=== PATIENT | male | born 2000 | race Caucasian/White ===

== ENCOUNTER 2025-01-14 20:21 | Emergency (ER) | payer BC, SELFPAY ==
[2025-01-14 20:51] VITALS: BP 133/82
[2025-01-14 21:33] LABS: COVID-19 Antigen Negative (Negative)
--- NOTE | 2025-01-14 22:05 | ED.GENMED ---
History of Present Illness
General
Chief Complaint: Cold/Flu/URI Symptoms
Source: patient and family
Exam Limitations: none
Time Seen by Provider: 01/14/25 22:03
Nursing documentation reviewed up to this point in time: agreed with
History of Present Illness
History of Present Illness:
Pleasant 24-year-old male presents to the emergency department with 24 hours of nausea, vomiting, diarrhea, epigastric pain and migraine headache. He states he has been having bodyaches. He does suffer from migraines and states that he has a
moderate migraine at this point. He does report that it has improved since getting here. Denies current fever or chills. He states he does have some shortness of breath.
Vital signs are stable. Patient not hypoxic
Nursing note reviewed. I agree with nursing documentation up to this point in time.
Home Meds and allergies reviewed.
NUMBER AND COMPLEXITY OF PROBLEMS ADDRESSED AT THE ENCOUNTER
� Chronic conditions affecting care:
� Acute Exacerbation and/or Progression of Chronic Illness:
� Differential Diagnosis includes:
AMOUNT AND/OR COMPLEXITY OF DATA TO BE REVIEWED AND ANALYZED
I performed an independent evaluation of the following and my interpretation is:
EKG: EKG from today shows normal sinus rhythm rate of 73 with normal intervals, normal axis. No evidence of acute ischemia present. Incomplete right bundle branch block present. No old EKG available for comparison.
Pulse Ox: Not Hypoxic
Senior Controls Technician: Sinus Rhythm
CT:
X-rays:
Ultrasound:
Laboratory Studies:
Other:
Review of other/old records: Labs from 2007 reviewed
Clinical information was obtained by an independent historian:
Prescriptions/Medications Considered but not given:
Further testing considered but not performed:
RISK OF COMPLICATIONS AND/OR MORBIDITY OR MORTALITY OF PATIENT MANAGEMENT
Social determinants of health affecting care: Good Social Support
Discussion with other providers:
Escalation of care including admission/observation vs risk of discharge considered: After being observed in the emergency department, patient is
CRITICAL CARE NOTE:
Total Time (exclusive of procedures):
Update:
Review of Systems
Review of Systems
Allergies reviewed?: Yes
All Other Systems: ROS reviewed and negative except as documented in HPI and ROS
Constitutional: Reports fatigue and sleep disturbance
ABD/GI: Reports nausea and vomiting
Neurological: Reports headache
Psychiatric: Reports anxiety
Phy Exam
General Physical Exam
General Presentation: well appearing and no apparent distress
General Skin: warm and dry
General Habitus: normal
General Mental: alert
General Hydration: appears well hydrated
ENT Exam
ENT Exam: EOMI, pharynx normal, neck supple and normocephalic
Eye Exam
Eye Exam: PERRL, cornea clear and conjunctiva normal
Cardiovascular Exam
Cardiovascular Exam: regular rate/rhythm, no edema and normal peripheral pulses
Systolic Murmur: 1/6
Pulmonary Exam
Pulmonary Exam: lungs clear, no respiratory distress, no rales, no crackles, no rhonchi, no stridor, no wheezing and no cough
Gastrointestinal Exam
Gastrointestinal Exam: normal bowel sounds, non tender, soft, no organomegaly, no pulsatile mass and non distended
Neurological Exam
Neurological Exam: alert, oriented x3, no motor deficits and speech normal
Musculoskeletal Exam
Musculoskeletal Exam: full ROM and no edema
Skin Exam
Skin Exam: normal color, warm/dry, no rash and no petechia
Psychiatric Exam
Psychiatric Exam: normal mood/affect
Course
Orders/Labs/Results
Orders:
Orders
01/14/25 20:57
EKG [Electrocardiogram (*1)] Urgent
Reason for Study: Shortness of Breath
EKG- Treatment ONCE
01/14/25 21:06
COVID-19 Antigen Urgent
Source: Nasal Swab
Influenza A+B Rapid Molecular Urgent
BLAS Source: Nasal Swab
Specimen Description:
01/14/25 22:16
0.9% Sodium Chloride 1000 ml [Nss] 1,000 ml IV BOLUS
Ondansetron Injectable [Zofran] 4 mg IV NOW STA
01/14/25 22:18
Urinalysis Reflex To Culture Urgent
Date Specimen was Collected: 01/15/25
Time Specimen was Collected: 00:16
01/14/25 22:22
CR Chest - 2 Views Urgent
Comment:
Reason For Exam: dyspnea
01/14/25 22:25
Complete Blood Count/With Diff Urgent
Comprehensive Metabolic Panel Urgent
Lipase Urgent
PTT Urgent
Prothrombin Time Urgent
Troponin I Urgent
01/14/25 23:34
Ketorolac [Toradol] 15 mg IV NOW STA
Abnormal Lab Results
01/14/25
22:25
MCV 79.8 L fL
(80.0-94.0)
MPV 11.4 H fL
(7.4-10.4)
Absolute Neuts (auto) 7.5 H 10^3/uL
(1.4-6.5)
Glucose 110 H mg/dl
(70-99)
01/14/25 22:25
01/14/25 22:25
Vital Signs
Initial and Last Documented VS:
Initial Vital Signs
Temp Pulse Resp BP Pulse Ox
98.3 F 81 18 133/82 99
01/14/25 20:51 01/14/25 20:51 01/14/25 20:51 01/14/25 20:51 01/14/25 20:51
Last Documented Vital Signs
Temp Pulse Resp BP Pulse Ox
98.3 F 81 18 133/82 99
01/14/25 20:51 01/14/25 20:51 01/14/25 20:51 01/14/25 20:51 01/14/25 21:27
*Radiology
Radiology exam reviewed: radiology read reviewed
*Pulse Oximetry
Patient hypoxic: no
*Critical Care Note
Total Time (30-74mins, 75-104mins- exclusive of procedures): Not Applicable
Update Note
Update Note:
Headache mostly resolved prior to Toradol administration. We gave Toradol and now he has 0 out of 10 headache pain. We did discuss lumbar puncture for this being one of his more severe migraines. At this point he refused. He states he feels
great. Has still not been able to urinate. He will get some more fluids in anticipation of a urine collection.
ED Attending Note
-
Portions of this chart may have been created with voice recognition software.� Occasional wrong word or��sound alike� substitutions may have occurred due to the inherent limitations of voice recognition software.
Discharge Plan
Departure
Patient Disposition: Home (Routine Discharge)
Date of Disposition: 01/15/25
Time of Disposition: 00:34
Patient with high blood pressure during this ER visit?: Yes
Condition: Good
Discharge Problem:
Acute dehydration, URI (upper respiratory infection), Migraine
Instructions: Viral Syndrome (DC), Dehydration in adults - ED discharge instructions, BLOOD PRESSURE
Referrals:
Dane Whitehead, [Family Provider] -
Activity Restrictions/Additional Instructions:
It was a pleasure meeting you and taking part in your care. We hope for your continued healing and wellness.
Please read discharge instructions in their entirety. However, they are for general education and may not describe your exact diagnosis at discharge. Information on your ER visit and medical conditions were discussed with you along with appropriate
follow up information...
If indicated, please take your medications as instructed and indicated on discharge paperwork.
Please schedule a follow up appointment as directed. Call to schedule an appointment
Please return to the emergency department with ANY change in, persisting, or worsening of symptoms. If any of your symptoms do not improve, or persist, or become more severe within 6-12 hours, please return to the emergency department for further
care.
Please return to the emergency department if you develop a headache, neck pain/stiffness, fever greater than 100.4F, chest pain, shortness of breath, persistent nausea, vomiting, slurred speech, difficulty walking, numbness/tingling, weakness, signs
of infection or any other symptoms that are worrisome to you.
If you have any questions or concerns please do not hesitate to call the Hospital at or E-mail me directly at [email or web address]
Interventions
Interventions:
*Risk Screen - Suicide Last Done: 01/14/25 20:51
*General Assessment Last Done: 01/14/25 20:51
*Neglect/Abuse Screening Last Done: 01/14/25 20:51
*ED COVID-19 Vaccine History Last Done: 01/14/25 20:56
ED- Pulmonary Assessment Last Done: 01/14/25 21:27
Discharge Date and Time
Print Language: [place]
[2025-01-14 22:41] LABS: % Basophils 0.2 % (0-2); % Eosinophils 0.1 % (0-6); % Immature Granulocytes 0.3 % (0-0.5); % Lymphocytes 20.8 % (20.5-51.1); % Monocytes 5.7 % (1.7-9.3); % Neutrophils 72.9 % (42.2-75.2); Absolute Lymphocytes 2.1 10^3/uL (1.2-3.4); Absolute Monocytes 0.6 10^3/uL (0.1-0.6); Absolute Neutrophils 7.5 10^3/uL (1.4-6.5); Hematocrit 41.2 % (39.0-52.0); Mean Corp Hgb Conc. 36.4 g/dL (33.0-37.0); Mean Corpuscular Hgb 29.1 pg (27.0-31.0); Mean Corpuscular Volume 79.8 fL (80.0-94.0); Mean Platelet Volume 11.4 fL (7.4-10.4); Nucleated Red Blood Cells % 0 % (-); Platelet Count 202 10^3/uL (130-400); Red Blood Cell Count 5.16 10^6/uL (4.70-6.10); White Blood Cell Count 10.3 10^3/uL (4.8-10.8)
[2025-01-14] MEDS: NSS 1000 IV (22:45)
[2025-01-14 22:51] LABS: APTT 28.2 Sec (23.4-35.0); INR 1.08; PT 14.3 Sec (11.4-14.6)
[2025-01-14 22:53] LABS: ALT (SGPT) 27 U/L (0-50); AST (SGOT) 27 U/L (17-59); Albumin 4.8 g/dl (3.5-5.0); Alkaline Phosphatase 78 U/L (38-126); Blood Urea Nitrogen 9 mg/dl (9-20); Calcium 10.2 mg/dl (8.4-10.2); Carbon Dioxide 25 mmol/L (22-30); Chloride 106 mmol/L (98-107); Glucose 110 mg/dl (70-99); Lipase 100 U/L (23-300); Potassium 4.1 mmol/L (3.5-5.1); Sodium 139 mmol/L (135-145); Total Bilirubin 0.8 mg/dl (0.2-1.3); Total Protein 7.9 g/dl (6.3-8.2); eGFR > 60.00
[2025-01-14] MEDS: ZOFRAN 4 MG IV (22:57)
[2025-01-14 23:05] LABS: Troponin I < 0.012 ng/ml
[2025-01-14] MEDS: TORADOL 15 MG IV (23:37)
[2025-01-15 00:25] LABS: Urine Albumin Negative (Neg - Trace); Urine Bilirubin Negative (Negative); Urine Character Clear (Clear); Urine Color Yellow; Urine Glucose Negative (Negative); Urine Ketone Negative (Negative); Urine Leukocyte Negative (Negative); Urine Nitrite Negative (Negative); Urine Occult Blood Negative (Negative); Urine Specific Gravity 1.005 (<1.030); Urine Urobilinogen Negative (Neg - 1+); Urine pH 6.5 (5.0-9.0)
[2025-01-15] MEDS: NSS 1000 IV (00:42)
== END 2025-01-15 01:04 | disposition home or self-care (01) ==
LOC: EMR 20:21
PROVIDERS: Student in an Organized Health Care Education/Training Program; EMERGENCY PHYSICIAN Student in an Organized Health Care Education/Training Program; FAMILY PHYSICIAN Family Medicine
DX: E86.0 Dehydration (principal); J06.9 Acute upper respiratory infection, unspecified; G43.909 Migraine, unspecified, not intractable, without status migrainosus; Z11.52 Encounter for screening for COVID-19
CPT/HCPCS: 99285; 96374; 96375; 96361 ×2; 71046; 80053; 81003; 83690; 84484; 85025; 85610; 85730; 87502; 87811; 93005